=== PATIENT | female | born 1985 | race Caucasian/White ===

== ENCOUNTER 2022-05-02 12:09 | Observation (INO) ==
[2022-05-02] MEDS ORDERED: HYDROmorphone 1 MG/1 ML SYRINGE ONE ×2 (12:19→12:21)
[2022-05-02] MEDS ORDERED: HYDROmorphone 1 MG/1 ML SYRINGE IV STA ×2 (12:21→14:15)
[2022-05-02] MEDS ORDERED: ONDANSETRON 4 MG/2 ML VIAL IV STA (12:21)
[2022-05-02] MEDS ORDERED: ONDANSETRON 4 MG/2 ML VIAL ONE (12:21)
[2022-05-02] MEDS ORDERED: propofoL 200 MG/20 ML VIAL IV ONE (12:45)
[2022-05-02 13:35] LABS: INR 0.9; PT Patient Result 10.4 SECS (10.5-12.0); Partial Thromboplastin Time 26.7 SECS (23.7-32.9)
[2022-05-02 13:36] LABS: Alanine Aminotransferase 21 U/L (13-56); Albumin 3.6 G/DL (3.4-5.0); Alkaline Phosphatase 73 U/L (45-117); Aspartate Amino Transferase 15 U/L (0-37); Bilirubin,Total < 0.39 MG/DL (0.20-1.00); Blood Urea Nitrogen 11 MG/DL (7-18); Calcium 9.4 MG/DL (8.5-10.1); Carbon Dioxide 20 MMOL/L (21-32); Chloride 109 MMOL/L (98-107); Glucose 128 MG/DL (74-106); Osmolality,Calculated 279.4 MOS/KG (273-304); Potassium 3.4 MMOL/L (3.5-5.1); Sodium 140 MMOL/L (136-145); Total Protein 7.4 G/DL (6.4-8.2)
[2022-05-02 13:50] LABS: Basophils % 0.3 % (0.0-0.8); Eosinophils # 0.1 10*3/uL (0.0-0.87); Eosinophils % 1.1 % (0.00-10.9); Hematocrit 37.4 VOL% (35.7-47.0); Immature Granulocytes % 0.6 %; Immature Granulocytes Absolute 0.06 #; Lymphocytes # 2.6 10*3/uL (1.4-4.0); Lymphocytes % 25.6 % (21.3-54.2); Mean Corpuscular HGB Conc 29.4 GM/DL (32-36); Mean Corpuscular Volume 70.7 FL (87-102); Mean Platelet Volume 9.9 FL (9.6-12.0); Monocytes # 0.6 10*3/uL (0.11-0.8); Neutrophils % 66.4 % (38.7-73.9); Platelet Count 543 T/CUMM (130-400); Red Blood Count 5.29 MC/CUMM (3.8-5.5); Red Cell Distribution Width 17.7 % (9.3-17.3)
[2022-05-02] MEDS ORDERED: HYDROmorphone 1 MG/1 ML SYRINGE IV PRN (14:15)
[2022-05-02] MEDS ORDERED: MAGNESIUM HYDROXIDE SUSP 30 ML UDCUP PO PRN (14:15)
[2022-05-02] MEDS ORDERED: SODIUM CHLORIDE 0.9% 1,000 ML IV SCH (14:45)
[2022-05-02] MEDS ORDERED: TEMAZEPAM 15 MG CAPSULE PO PRN (18:58)
[2022-05-02] MEDS ORDERED: PROMETHAZINE 25 MG TABLET PO PRN (18:58)
[2022-05-02 19:56] LABS: Mucus,Urine Few /LPF (Occasional); RBC,Urine <1 /HPF (0-4); Squamous Epithelial Cell,Urine Occasional /HPF (0-10)
[2022-05-02 19:57] LABS: Bilirubin,Urine Negative (Negative); Blood, Urine Negative (Negative); Glucose,Urine (UA) Negative (Negative); Ketones,Urine Negative (Negative); Nitrite,Urine Negative (Negative); Protein,Urine Trace mg/dL (Negative); Urine Appearance Clear (Clear); Urine Color Yellow (Yellow); Urine Specific Gravity 1.025 (1.001-1.035); Urine Urobilinogen 0.2 eU/dL (<2.0)
[2022-05-02 20:06] LABS: Barbiturates Screen,Urine Negative (Negative); Benzodiazepines Screen,Urine Positive (Negative); Cannabinoid Screen,Urine Negative (Negative); Opiate Screen,Urine Positive (Negative); Phencyclidine Screen,Urine Negative (Negative)
[2022-05-02] MEDS: MELATONIN 3 MG TABLET PO SCH (20:58)
[2022-05-02] MEDS: ONDANSETRON 4 MG/2 ML VIAL IV PRN (20:59)
[2022-05-02] MEDS: POTASSIUM CHLORIDE INJ 40 MEQ in LACTATED RINGERS 1,000 ML IV SCH (21:00)
[2022-05-02] MEDS: HYDROmorphone 1 MG/1 ML SYRINGE IV PRN (22:01)
[2022-05-03] MEDS: HYDROmorphone 1 MG/1 ML SYRINGE IV PRN ×7 (01:44→23:27)
[2022-05-03 05:45] LABS: Calcium 8.5 MG/DL (8.5-10.1); Osmolality,Calculated 273.7 MOS/KG (273-304); Potassium 3.9 MMOL/L (3.5-5.1)
[2022-05-03 05:53] LABS: Basophils % 0.3 % (0.0-0.8); Eosinophils # 0.1 10*3/uL (0.0-0.87); Eosinophils % 1.2 % (0.00-10.9); Hematocrit 30.8 VOL% (35.7-47.0); Immature Granulocytes % 0.4 %; Immature Granulocytes Absolute 0.03 #; Lymphocytes % 27.3 % (21.3-54.2); Mean Corpuscular HGB Conc 29.2 GM/DL (32-36); Mean Corpuscular Volume 71.3 FL (87-102); Mean Platelet Volume 9.7 FL (9.6-12.0); Monocytes # 0.6 10*3/uL (0.11-0.8); Monocytes % 8.1 % (1.7-12.7); Neutrophils % 62.7 % (38.7-73.9); Red Blood Count 4.32 MC/CUMM (3.8-5.5); Red Cell Distribution Width 17.2 % (9.3-17.3); White Blood Count 7.3 T/CUMM (4-12)
[2022-05-03 05:55] LABS: Platelet Count 409 T/CUMM (130-400)
[2022-05-03] MEDS ORDERED: ceFAZolin 2,000 MG/50 ML DUPLEX IV ONE (06:00)
[2022-05-03 06:13] LABS: Hypochromia 1+; Microcytosis 2+; Ovalocytes Slight
[2022-05-03 06:14] LABS: Platelet Estimate Increased
[2022-05-03] MEDS: POTASSIUM CHLORIDE INJ 40 MEQ in LACTATED RINGERS 1,000 ML IV SCH (06:27)
[2022-05-03] MEDS ORDERED: propofoL 200 MG/20 ML VIAL IV ONE (06:45)
[2022-05-03] MEDS ORDERED: LIDOCAINE 2% 5 ML VIAL ONE (06:45)
[2022-05-03] MEDS ORDERED: MIDAZOLAM 2 MG/2 ML VIAL ONE ×2 (06:45→07:14)
[2022-05-03] MEDS ORDERED: fentaNYL 100 MCG/2 ML VIAL ONE (06:46)
[2022-05-03] MEDS ORDERED: DEXAMETHASONE 4 MG/1 ML VIAL ONE ×3 (06:53→07:32)
[2022-05-03] MEDS ORDERED: LIDOCAINE 1% 5 ML VIAL ONE (06:53)
[2022-05-03] MEDS ORDERED: ROPIVACAINE 0.5% 30 ML VIAL ONE (06:53)
[2022-05-03] MEDS ORDERED: SCOPOLAMINE 1.5 MG PATCH TRANSDERM ONE (07:06)
[2022-05-03] MEDS ORDERED: ALUMINUM/MAGNES/SIMETH MAX STR 30 ML UDCUP PO PRN (07:29)
[2022-05-03] MEDS ORDERED: diphenhydrAMINE CAP 25 MG CAPSULE PO PRN (07:30)
[2022-05-03] MEDS ORDERED: ONDANSETRON 4 MG/2 ML VIAL ONE (07:32)
[2022-05-03] MEDS ORDERED: ACETAMINOPHEN INJ 1,000 MG/100 ML VIAL IV ONE (07:32)
[2022-05-03] MEDS ORDERED: HYDROmorphone 1 MG/1 ML SYRINGE ONE (08:00)
[2022-05-03] MEDS ORDERED: BACITRACIN OINT 0.9 GM PACK TOP ONE (08:03)
[2022-05-03] MEDS ORDERED: SEVOFLURANE 1 UNIT/15 MINUTE INH ONE (08:11)
[2022-05-03] MEDS ORDERED: ONDANSETRON 4 MG/2 ML VIAL IV PRN (09:22)
[2022-05-03] MEDS ORDERED: MEPERIDINE 25 MG/1 ML VIAL ONE (09:22)
[2022-05-03] MEDS ORDERED: MEPERIDINE 25 MG/1 ML VIAL IV PRN (09:22)
[2022-05-03] MEDS: PANTOPRAZOLE 40 MG TABLET PO SCH (10:14)
[2022-05-03] MEDS: ceFAZolin 2,000 MG/50 ML DUPLEX IV SCH ×2 (14:44→22:00)
[2022-05-03] MEDS: MELATONIN 3 MG TABLET PO SCH (20:36)
[2022-05-04] MEDS ORDERED: FONDAPARINUX 2.5 MG/0.5 ML SYRINGE SUBCUT SCH (01:30)
[2022-05-04] MEDS: POTASSIUM CHLORIDE INJ 40 MEQ in LACTATED RINGERS 1,000 ML IV SCH ×2 (01:39→09:23)
[2022-05-04] MEDS: HYDROmorphone 1 MG/1 ML SYRINGE IV PRN ×3 (05:18→12:09)
[2022-05-04] MEDS: ONDANSETRON 4 MG/2 ML VIAL IV PRN (08:42)
[2022-05-04] MEDS: PANTOPRAZOLE 40 MG TABLET PO SCH (08:43)
[2022-05-04 11:29] VITALS: BP 126/64
== END 2022-05-04 13:17 | disposition home health service (06) ==
LOC: N.EDINP 12:09 → N.ED 12:09 → N.3E 14:40
PROVIDERS: ADMIT Orthopaedic Surgery; ATTEND Orthopaedic Surgery